=== PATIENT | male | born 1945 | race Two or more races ===

== ENCOUNTER 2018-11-27 14:01 | Outpatient (CLI) | payer OTHER ==
[~2018-11-27 14:01] MED LIST: AMITRIPTYLINE100 MG PO; AMLODIPINE BESYL5 MG PO; ARICEPT10 MG PO; CARVEDILOL6.25 MG PO; CLARITIN10 M2 PO; GLIPIZIDE5 MG PO; JANUVIA50 MG PO; LIPITOR20 MG PO; LISINOPRIL20 MG PO; LORAZEPAM1 MG PO; MOBIC7.5 MG PO; NEURONTIN300 MG PO; SYNTHROID112 MCG PO; ULTRACET PO; ZITHROMAX TRI-500 MG PO
== END 2018-11-27 14:03 | disposition home or self-care (01) ==
LOC: SONOGRAMA 14:01 → MAMO-SONO 14:15
DX: C64.2 Malignant neoplasm of left kidney, except renal pelvis (principal)

== ENCOUNTER 2019-08-29 09:46 | Outpatient (CLI) | payer OTHER | END 2019-08-29 09:47 | disposition home or self-care (01) | LOC: SONOGRAMA 09:46 → MAMO-SONO 10:15 | DX: M77.11 Lateral epicondylitis, right elbow (principal) ==

== ENCOUNTER 2021-02-15 12:19 | Emergency (ER) | payer OTHER ==
[~2021-02-15] VITALS: Ht 167.6 cm; Wt 81.6 kg
[2021-02-15] MEDS ORDERED: PLAVIX75 MG PO (12:39)
[2021-02-15] MEDS ORDERED: ELIQUIS5 MG PO (12:40)
[2021-02-18] MEDS ORDERED: DICLOFENAC POTA50 MG PO (12:02)
[2021-02-18] MEDS ORDERED: VOLTAREN100 GM TOP (12:02)
[2021-04-01] MEDS ORDERED: DICLOFENAC POTA50 MG PO (11:39)
== END 2021-02-15 19:02 | disposition home or self-care (01) ==
LOC: ER 12:19
DX: S30.0XXA Contusion of lower back and pelvis, initial encounter (principal); S00.03XA Contusion of scalp, initial encounter; M54.2 Cervicalgia; M25.532 Pain in left wrist; R42 Dizziness and giddiness; W18.09XA Striking against other object with subsequent fall, initial encounter; Y93.89 Activity, other specified; Y92.018 Other place in single-family (private) house as the place of occurrence of the external cause; Y99.8 Other external cause status

== ENCOUNTER 2021-10-19 09:28 | Outpatient (CLI) | payer OTHER ==
[~2021-10-19 09:28] MED LIST changes: +DICLOFENAC POTA50 MG PO; +ELIQUIS5 MG PO; +PLAVIX75 MG PO; +VOLTAREN100 GM TOP
== END 2021-10-19 09:29 | disposition home or self-care (01) ==
LOC: LAB 09:28
PROVIDERS: ATTEND Radiology Diagnostic Radiology
DX: R10.9 Unspecified abdominal pain (principal)

== ENCOUNTER 2021-10-25 07:10 | Outpatient (CLI) | payer OTHER | END 2021-10-25 07:17 | disposition home or self-care (01) | LOC: TOM 07:10 | PROVIDERS: ATTEND Internal Medicine Gastroenterology | DX: R10.9 Unspecified abdominal pain (principal); R63.4 Abnormal weight loss; R63.0 Anorexia | CPT/HCPCS: 74160; A9579 ==

== ENCOUNTER 2022-11-09 10:44 | Outpatient (CLI) | payer OTHER | END 2022-11-09 10:46 | disposition home or self-care (01) | LOC: LAB 10:44 | PROVIDERS: ATTEND Radiology Diagnostic Radiology | DX: R42 Dizziness and giddiness (principal) ==

== ENCOUNTER → 2022-11-09 | Outpatient (CLI) | payer OTHER | END | disposition home or self-care (01) | LOC: MRI 10:19 | PROVIDERS: ATTEND Otolaryngology | DX: H61.23 Impacted cerumen, bilateral (principal); H90.3 Sensorineural hearing loss, bilateral; R42 Dizziness and giddiness; J30.9 Allergic rhinitis, unspecified | CPT/HCPCS: 70553; Q9965 ==

== ENCOUNTER 2023-03-27 11:44 | Outpatient (CLI) | payer OTHER | END 2023-03-27 11:56 | disposition home or self-care (01) | LOC: MRI 11:44 | DX: M25.562 Pain in left knee (principal); M19.09 Primary osteoarthritis, other specified site | CPT/HCPCS: 73221 ==

== ENCOUNTER 2024-03-24 16:10 | Inpatient (IN) | payer OTHER ==
[~2024-03-24] VITALS: Ht 167.6 cm; Wt 63.5 kg
[2024-03-24] MEDS ORDERED: 0.9 % SODIUM CHLORIDE 1,000 ML IV SCH (16:30)
[2024-03-24] MEDS ORDERED: ASPIRIN 81 MG TAB.CHEW PO ONE (16:30)
--- NOTE | 2024-03-24 16:30 | NUR ---
PTE ALERTA Y ORIENTADO X3, LLEGA EN AMBULANCIA EN COMPANIA DE PARAMEDICOS. PTE REFIERE HACE 1 HORA COMENZO CON DOLOR DE PECHO. AL MOMENTO PRESION MANUAL DE 140/100MMHG. PTE CON HX DE 3 INFARTOS Y PADECE DE FIBRILACION. PTE CON MARCAPASO Y DESFIBRILADOR. SE CLAY SV, SE REALIZA EKG Y SE PRESENTA A QUIEN REFIERE UBICAR PTE EN UNIDAD DE CHEST PAIN.
[2024-03-24] MEDS ORDERED: LABETALOL HCL 200 MG/40 ML VIAL IV PRN (16:45)
[2024-03-24] MEDS ORDERED: MORPHINE SULFATE 4 MG/ML CARTRIDGE IV ONE (16:45)
--- NOTE | 2024-03-24 18:10 | NUR ---
SE RECIBE PTE EN COMPANIA DE PARAMEDICOS ALERTA Y ORIENTADO X3 SE UBICA EN LA UNIDAD DE CHESTPAIN CAMA #18 CONECTADO A MONITOR CARDIACO Y OXIMETRIA EN POSICION MANRIQUE LEOLA CON BARANDAS ELEVADAS. PTE CON CANULA NASAL A 3L. PTE CANALIZADO X2 CON ANGIO #22 PATENTE BENNY DE EDEMA CON IV FLUID DE 0.9NSS BAJANDO A 40ML/HR. ABDOMEN DEPRESIBLE AL TACTO. EXTREMIDADES INFERIORES BENNY DE EDEMA Y ENROJECIMIENTO.PTE ORINANDO ESPONTANEO. SE MANTIENE BAJO OBSERVACION POR CAMBIOS SIGNIFICATIVOS.
[2024-03-24 18:18] LABS: HEMATOCRIT 41.3 % (39.0-48.0); HEMOGLOBIN 13.9 g/dL (13-16.00); MEAN CELL VOLUME 95.8 fL (80.0-100.00); MEAN CORPUSCULAR HEMOGLOBIN 32.2 pg (27.00-32.0); MEAN CORPUSCULAR HGB CONC 33.6 g/dl (32.0-36.0); PLATELET COUNT 197 K/uL (150-450); RED BLOOD COUNT 4.31 M/uL (4.00-6.00); RED CELL DISTRIBUTION WIDTH 15.4 % (11.5-14.5)
[2024-03-24 18:20] LABS: INR 1.09; PARTIAL THROMBOPLASTIN TIME 25.3 SECONDS (22.0-34.0); PROTHROMBIN TIME 11.4 SECONDS (9.0-11.5)
[2024-03-24 18:29] LABS: ALBUMIN 3.6 gm/dL (3.4-5.0); BILIRUBIN TOTAL 0.52 mg/dL (0.3-1.2); CALCIUM 9.3 mg/dL (8.5-10.1); CREATININE SERUM 1.59 mg/dL (0.70-1.30); GFR 42.21; GLOBULINA 3.3 G/DL (2.4-3.5); TOTAL PROTEIN 6.9 gm/dL (6.4-8.2)
[2024-03-24 18:39] LABS: POTASSIUM 6.23 mEq/L (3.5-5.1)
[2024-03-24] MEDS ORDERED: FUROsemide 20 MG/2 ML VIAL IV ONE (19:30)
[2024-03-24 22:08] LABS: CALCIUM 8.8 mg/dL (8.5-10.1); CREATININE SERUM 1.4 mg/dL (0.70-1.30); GFR 48.89; POTASSIUM 4.05 mEq/L (3.5-5.1)
[2024-03-24] MEDS ORDERED: CEFEPIME HCL 1,000 MG in DEXTROSE 5 % IN WATER 50 ML IV SCH (22:50)
[2024-03-24] MEDS ORDERED: NITROGLYCERIN IN 5 % DEXTROSE 250 ML IV SCH (22:52)
[2024-03-24] MEDS ORDERED: ONDANSETRON HCL 4 MG in 0.9 % SODIUM CHLORIDE 50 ML IV PRN (23:00)
[2024-03-24] MEDS ORDERED: ACETAMINOPHEN 500 MG GEL..CAP PO PRN (23:00)
[2024-03-25 00:12] LABS: ABG PH 7.479 (7.35-7.45); ABG PO2 140.2 mmHg (80-100); ABG pCO2 35.3 mmHg (35-45); BASE EXCESS 2.5 mmol/l; BICARBONATE 25.6 mmol/l (23-25); SaO2 99.3 %; Tco2 26.7 mmol/l; allen test SATISFACTORY; o2 28 %; puncture site RADIAL RIGHT
[2024-03-25 04:13] LABS: PH,URINE 6.5 (5.0-8.0); URINE APPEARANCE Clear; URINE BILIRRUBIN Negative (NEGATIVE); URINE BLOOD Negative; URINE COLOR Yellow; URINE LEUKOCYTE Negative; URINE NITRATE Negative; URINE PROTEIN 30 (NEGATIVE)
[2024-03-25 04:17] LABS: URINE EPITHELIAL CELLS 4.9 uL (0.0-38.8); URINE RBC 3.5 uL (0.0-20.8)
[2024-03-25 04:52] LABS: URINE BACTERIA 1.2 uL (0.0-1933); URINE GLUCOSE 500 MG/DL (NEGATIVE); URINE WBC 0.7 uL (0.0-23.2)
[2024-03-25] MEDS ORDERED: APIXABAN 5 MG TABLET PO SCH (05:00)
[2024-03-25] MEDS ORDERED: LEVOTHYROXINE SODIUM 112 MCG TABLET PO SCH (06:00)
[2024-03-25 07:37] LABS: MAGNESIUM 1.9 mg/dL (1.8-2.4); PHOSPHOROUS 3.3 mg/dL (2.5-4.9)
[2024-03-25] MEDS ORDERED: ATORVASTATIN CALCIUM 20 MG TABLET PO SCH (09:00)
[2024-03-25] MEDS ORDERED: CARVEDILOL 6.25 MG TABLET PO SCH (09:00)
[2024-03-25] MEDS ORDERED: VANCOMYCIN HCL 1,000 MG VIAL IV SCH (09:00)
[2024-03-25] MEDS ORDERED: FUROsemide 20 MG/2 ML VIAL IV SCH (09:00)
[2024-03-25] MEDS ORDERED: DONEPEZIL HCL 10 MG TABLET PO SCH (17:00)
[2024-03-25] MEDS ORDERED: CEFEPIME HCL 2,000 MG in 0.9 % SODIUM CHLORIDE 100 ML IV SCH (21:00)
[2024-03-26] MEDS ORDERED: CHLORHEXIDINE GLUCONATE 120 ML BOTTLE TOP ONE (08:05)
[2024-03-26] MEDS ORDERED: hydrALAZINE HCL 25 MG TABLET PO SCH ×2 (09:00)
[2024-03-27] MEDS ORDERED: LEVOTHYROXINE SODIUM 150 MCG TABLET PO SCH (06:00)
[2024-03-27] MEDS ORDERED: NITROGLYCERIN IN 5 % DEXTROSE 250 ML IV SCH (06:15)
[2024-03-27] MEDS ORDERED: DEXTROSE 50 % IN WATER 0.5 G/ML DISP.SYRIN IV PRN (06:30)
[2024-03-27] MEDS ORDERED: INSULIN LISPRO 1,000 UNIT/10 ML UNITS SUBCUTANEO PRN (06:30)
[2024-03-27] MEDS ORDERED: ELIQUIS5 MG PO (07:00)
[2024-03-27] MEDS ORDERED: LEVOTHYROXINE150 MCG PO (07:01)
[2024-03-27] MEDS ORDERED: NASAL MIST126 ML NASAL (07:01)
[2024-03-27] MEDS ORDERED: AUGMENTIN XR 11 EACH PO (07:01)
[2024-03-27] MEDS ORDERED: ARICEPT10 MG PO (07:06)
== END 2024-03-27 12:58 | disposition home or self-care (01) | DRG 291 ==
LOC: ER 16:10 → ICU-2 22:54 → MEDJ 03-26 10:54
PROVIDERS: General Practice; ADMIT Internal Medicine; ATTEND Internal Medicine
PROC: BV44ZZZ Ultrasonography of Scrotum (ICD-10-PCS; principal; 2024-03-24)
PROC: B246ZZZ Ultrasonography of Right and Left Heart (ICD-10-PCS; 2024-03-24)
PROC: 02HV33Z Insertion of Infusion Device into Superior Vena Cava, Percutaneous Approach (ICD-10-PCS; 2024-03-25)
PROC: 4A12X4Z Monitoring of Cardiac Electrical Activity, External Approach (ICD-10-PCS; 2024-03-26)
DX: I13.0 Hypertensive heart and chronic kidney disease with heart failure and stage 1 through stage 4 chronic kidney disease, or unspecified chronic kidney disease (principal); I50.23 Acute on chronic systolic (congestive) heart failure; N17.8 Other acute kidney failure; N18.9 Chronic kidney disease, unspecified; E11.22 Type 2 diabetes mellitus with diabetic chronic kidney disease; Z95.0 Presence of cardiac pacemaker; N45.2 Orchitis; Z79.4 Long term (current) use of insulin